=== PATIENT | male | born 1945 | race Caucasian/White ===

== ENCOUNTER 2018-02-08 10:23 | Day surgery (SDC) | payer OTHER ==
[~2018-02-08 10:23] MED LIST: BESIFLOXACIN HCL 0.6% OPH SUSP 5 ML BOTTLE OS PRN; CHONDR SU A NA/HYALUR INTRAOC KIT (SURGICARE) ONE; CYCLOPENTOLATE 0.2%/PHENYLEPHRINE 1% OPH SOLN 2 ML OS PRN; EPINEPHRINE INJ/PF 1 MG/1 ML AMPULE ONE; KETOROLAC TROMETHAMINE 0.45% 4 DROP/0.4 ML DROPERETTE OS PRN; LIDOCAINE 1% INJ-PF (10 MG/ML) 30 ML SDV ONE; TETRACAINE HCL 0.5% OPH SOLN 4 ML OS PRN; TROPICAMIDE 1% OPH SOLN 3 ML OS PRN
[2018-02-08] MEDS: TETRACAINE HCL 0.5% OPH SOLN 4 ML OS PRN ×3 (11:14→12:34)
[2018-02-08] MEDS: CYCLOPENTOLATE 0.2%/PHENYLEPHRINE 1% OPH SOLN 2 ML OS PRN ×3 (11:15→11:40)
[2018-02-08] MEDS: TROPICAMIDE 1% OPH SOLN 3 ML OS PRN ×3 (11:15→11:40)
[2018-02-08] MEDS: BESIFLOXACIN HCL 0.6% OPH SUSP 5 ML BOTTLE OS PRN ×3 (11:16→13:00)
[2018-02-08] MEDS ORDERED: MIDAZOLAM 2 MG/2 ML INJ ONE (11:42)
[2018-02-08] MEDS ORDERED: LIDOCAINE 1%/PHENYLEPHRINE 1.5% 1 ML VIAL ONE (13:06)
--- NOTE | 2018-02-08 22:01 | [facility] OPERATIVE REPORT E ---
[facility] Operative Report NAME: SONJA TANNER AGE: 72Y DATE OF SURGERY: 02/08/2018 ROOM: PREOPERATIVE DIAGNOSIS: CATARACT, LEFT EYE. POSTOPERATIVE DIAGNOSIS: CATARACT, LEFT EYE. OPERATION: Cataract extraction with insertion of an IOL of the left eye. SURGEON: DOUG SANCHEZ M.D. ANESTHESIA: Topical. PROCEDURE: After obtaining appropriate consent, the patient's left eye was prepped and draped in sterile fashion as well as the surgeon in a sterile manner and cataract surgery was started. First a paracentesis blade was used to make a side-port incision. Viscoelastic was used to inflate the anterior chamber. Next a 2.4 mm incision was made with a 2.4 mm blade, clear corneal temporally. A continuous capsulorrhexis was made using a cystotome and Utrata forceps. Following this hydrodissection was carried out to make the lens fully loose and mobile and it was rotated 90 degrees. Following this, a [id number] technique was used to phacoemulsify the lens with a CDE of 14.90. The remaining cortex was removed with irrigation/aspiration. Provisc was instilled into the capsular bag to inflate the bag. A SN60WF, 21.5 diopter lens was placed. The remaining viscoelastic material was removed with irrigation/aspiration. Following this, the incision was found to be watertight. Besivance was instilled into the eye and a protective shield was placed over the eye. The patient returned to the postoperative recovery in stable condition. DICTATING PHYSICIAN: DOUG SANCHEZ M.D. [id number] PHY#: [id number] 1950 ID: [id number] JOB#: [id number] ACCT: [id number] cc:DOUG SANCHEZ M.D. >
--- NOTE | 2018-02-08 22:01 | [facility] DISCHARGE SUMMARY E ---
[facility] Discharge Summary NAME: SONJA TANNER AGE: 72Y ADMITTED: 02/08/2018 DISCHARGED: 02/08/2018 HOSPITAL COURSE: This is a 72-year-old male who underwent cataract extraction of the left eye. DIAGNOSIS: CATARACT, LEFT EYE. He underwent surgery because he was having difficulty driving at night secondary to glare from headlights. DISCHARGE INSTRUCTIONS: He should be on a regular diet. No bending at his waist, no heavy lifting. He should use his Besivance, Ilevro, and Durezol at 3 p.m. and 8 p.m. and sleep with a rigid shield. I will see him for his 1 day postoperative tomorrow. DICTATING PHYSICIAN: DOUG SANCHEZ M.D. [id number] PHY#: [id number] ID: [id number] JOB#: [id number] ACCT: [id number] cc:DOUG SANCHEZ M.D. >
[2018-02-09] MEDS ORDERED: TETRACAINE HCL 0.5% OPH SOLN 4 ML OS PRN (05:00)
[2018-02-09] MEDS ORDERED: TROPICAMIDE 1% OPH SOLN 3 ML OS PRN (05:00)
[2018-02-09] MEDS ORDERED: BESIFLOXACIN HCL 0.6% OPH SUSP 5 ML BOTTLE OS PRN (05:00)
[2018-02-09] MEDS ORDERED: BUPIVACAINE HCL 0.75% INJ/PF (7.5 MG/1 ML) 10 ML SDV OS PRN (05:00)
[2018-02-09] MEDS ORDERED: KETOROLAC TROMETHAMINE 0.45% 4 DROP/0.4 ML DROPERETTE OS PRN (05:00)
[2018-02-09] MEDS ORDERED: CYCLOPENTOLATE 0.2%/PHENYLEPHRINE 1% OPH SOLN 2 ML OS PRN (05:00)
== END 2018-02-08 13:44 | disposition home or self-care (01) ==
LOC: SC 10:23
PROVIDERS: ATTEND Internal Medicine
DX: H25.13 Age-related nuclear cataract, bilateral (principal); H17.89 Other corneal scars and opacities; H57.03 Miosis; I10 Essential (primary) hypertension; E78.00 Pure hypercholesterolemia, unspecified; J44.9 Chronic obstructive pulmonary disease, unspecified; F17.210 Nicotine dependence, cigarettes, uncomplicated; Z79.899 Other long term (current) drug therapy; Z79.51 Long term (current) use of inhaled steroids
CPT/HCPCS: 66984; V2632; J2250; J3490 ×3; J0171; J2370; 142

== ENCOUNTER 2018-03-18 09:31 | Emergency (ER) | payer MEDICARE, OTHER ==
[2018-03-18] MEDS ORDERED: IPRATROPIUM/ALBUTEROL 0.5-2.5 MG/3 ML AMPUL NEB ONE (09:49)
[2018-03-18] MEDS ORDERED: METHYLPREDNISOLONE INJ 125 MG/2 ML SDV IV ONE (09:49)
[2018-03-18] MEDS ORDERED: BUDESONIDE NEB 0.5 MG/2 ML AMPUL NEB ONE (09:49)
--- NOTE | 2018-03-18 09:49 | ER Document Report ---
ED Medical Screen (RME) - General Chief Complaint: Cough Stated Complaint: COUGH/SHORT OF BREATH Time Seen by Provider: 03/18/18 09:43 Notes: Patient is a 72-year-old male with COPD and CAD that presents to the emergency department for chief complaint of cough and shortness of breath. Patient reports been having the symptoms for the last 48 hours, seemingly getting worse , with a productive sputum. ROS: Other than noted above, the 12 point review of systems was reviewed with the patient and were negative, all pertinent findings are included in the HPI. PHYSICAL EXAMINATION: Vital signs reviewed. GENERAL: Elderly male, in no acute respiratory distress HEAD: Atraumatic, normocephalic. EYES: Pupils equal round extraocular movements intact, conjunctiva are normal. ENT: Nares patent NECK: Normal range of motion CV: Heart regular rate and rhythm LUNGS: No respiratory distress, severely diminished lung sounds Musculoskeletal: Normal range of motion NEUROLOGICAL: Normal speech PSYCH: Normal mood, normal affect. MDM: Patient seen and examined for rapid initial assessment. Vital signs reviewed. A comprehensive ED assessment and evaluation of the patient, analysis of test results and completion of the medical decision making process will be conducted by additional ED providers. *Note is created using voice recognition software and may contain spelling, syntax or grammatical errors. TRAVEL OUTSIDE OF THE [place] IN LAST 30 DAYS: No - Related Data Allergies/Adverse Reactions: No Known Allergies Allergy (Unverified 01/08/18 10:06) Past Medical History - Past Medical History Cardiac Medical History: Reports: Hx Hypertension Denies: Hx Heart Attack Pulmonary Medical History: Denies: Hx Asthma Neurological Medical History: Denies: Hx Cerebrovascular Accident, Hx Seizures GI Medical History: Denies: Hx Hepatitis, Hx Hiatal Hernia, Hx Ulcer Infectious Medical History: Denies: Hx Hepatitis Past Surgical History: Denies: Hx Open Heart Surgery - stents, Hx Pacemaker Physical Exam - Vital signs Vitals: Temp Pulse Resp BP Pulse Ox 98.2 F 75 18 111/60 95 03/18/18 09:41 03/18/18 09:41 03/18/18 09:41 03/18/18 09:41 03/18/18 09:41 Course - Vital Signs Vital signs: Temp Pulse Resp BP Pulse Ox 98.2 F 75 18 111/60 95 03/18/18 09:41 03/18/18 09:41 03/18/18 09:41 03/18/18 09:41 03/18/18 09:41 Doctor's Discharge - Discharge Referrals: CAITLIN FARIAS MD [Primary Care Provider] - Follow up as needed
--- NOTE | 2018-03-18 10:13 | ER Document Report ---
ED General - General Chief Complaint: Cough Stated Complaint: COUGH/SHORT OF BREATH Time Seen by Provider: 03/18/18 09:43 Mode of Arrival: Ambulatory Information source: Patient Notes: This is a 72-year-old man with COPD who presents to the emergency room with cough, congestion, sinus drainage and shortness of breath and wheezing. TRAVEL OUTSIDE OF THE [place] IN LAST 30 DAYS: No - HPI Onset: Last week Onset/Duration: Gradual Quality of pain: No pain Severity: None Pain Level: Denies Associated symptoms: Chills, Nonproductive cough, Shortness of breath Exacerbated by: Movement Relieved by: Remaining still Similar symptoms previously: Yes Recently seen / treated by doctor: No - Related Data Allergies/Adverse Reactions: No Known Allergies Allergy (Unverified 01/08/18 10:06) Past Medical History - General Information source: Patient - Social History Smoking Status: Current Every Day Smoker Cigarette use (# per day): Yes - Half a pack per day Chew tobacco use (# tins/day): No Frequency of alcohol use: Occasional Drug Abuse: None Lives with: Spouse/Significant other Family History: None Patient has suicidal ideation: No Patient has homicidal ideation: No - Past Medical History Cardiac Medical History: Reports: Hx Hypertension Denies: Hx Heart Attack Pulmonary Medical History: Denies: Hx Asthma Neurological Medical History: Denies: Hx Cerebrovascular Accident, Hx Seizures Renal/ Medical History: Denies: Hx Peritoneal Dialysis GI Medical History: Denies: Hx Hepatitis, Hx Hiatal Hernia, Hx Ulcer Infectious Medical History: Denies: Hx Hepatitis Past Surgical History: Reports: Hx Coronary Stent. Denies: Hx Open Heart Surgery - stents, Hx Pacemaker Review of Systems - Review of Systems Constitutional: Chills, Fever EENT: No symptoms reported Cardiovascular: No symptoms reported Respiratory: See HPI Gastrointestinal: No symptoms reported Genitourinary: No symptoms reported Male Genitourinary: No symptoms reported Musculoskeletal: No symptoms reported Skin: No symptoms reported Hematologic/Lymphatic: No symptoms reported Neurological/Psychological: No symptoms reported Physical Exam - Vital signs Vitals: Temp Pulse Resp BP Pulse Ox 98.2 F 75 18 111/60 95 03/18/18 09:41 03/18/18 09:41 03/18/18 09:41 03/18/18 09:41 03/18/18 09:41 Notes: Physical exam: GENERAL: Patient is alert and oriented x3 HEAD: Atraumatic, normocephalic. EYES: Pupils equal round and reactive to light, extraocular movements intact, sclera anicteric, conjunctiva are normal. ENT: TMs normal, nares patent, oropharynx clear without exudates. Moist mucous membranes. NECK: Normal range of motion, supple without obvious mass or JVD. LUNGS: Wheezing and rhonchi bilaterally. HEART: Regular rate and rhythm without murmurs, rubs or gallops. ABDOMEN: Soft, normoactive bowel sounds. No tenderness to palpation. No guarding, no rebound. No masses appreciated. EXTREMITIES: Normal range of motion, no pitting or edema. No clubbing or cyanosis. NEUROLOGICAL: Cranial nerves II through XII grossly intact. Normal speech, moving all extremities. PSYCH: Normal mood, normal affect. SKIN: Warm, Dry, normal turgor, no rashes or lesions noted. Course - Vital Signs Vital signs: Temp Pulse Resp BP Pulse Ox 98 F 98 18 114/61 96 03/18/18 13:10 03/18/18 13:10 03/18/18 13:10 03/18/18 13:10 03/18/18 13:10 - Laboratory Result Diagrams: 03/18/18 10:08 03/18/18 10:08 Laboratory results interpreted by me: 03/18/18 03/18/18 10:08 10:08 RDW 14.2 H Plt Count 149 L Seg Neutrophils % 80.6 H Lymphocytes % 5.9 L Absolute Lymphocytes 0.3 L Sodium 132.4 L Chloride 96 L Glucose 118 H - Diagnostic Test Radiology reviewed: Image reviewed, Reports reviewed - Chest x-ray shows no infiltrates or effusions - EKG Interpretation by Me Rate: Normal Rhythm: NSR - EKG showed normal sinus rhythm with a ventricular rate of 91, occasional PVCs, no acute ST-T wave changes Discharge - Discharge Clinical Impression: COPD exacerbation, Influenza A Condition: Stable Disposition: HOME, SELF-CARE Additional Instructions: As we discussed, your chest x-ray showed no evidence of pneumonia. Your serologies however did show that you were positive for influenza A. You are being treated for both a COPD exacerbation in the setting of influenza A. I want you to start the Tamiflu today. Continue with the prednisone: Start today. Continue with your other medicines and inhalers. Return to the emergency room for worsening shortness of breath or any concerns or getting worse. Otherwise, call your doctor tomorrow for a follow-up appointment within the next few days. Prescriptions: Oseltamivir Phosphate [Tamiflu 75 mg Capsule] 75 mg PO BID #10 capsule Prednisone [Deltasone 20 mg Tablet] 3 tab PO DAILY 5 Days tablet Referrals: CAITLIN FARIAS MD [Primary Care Provider] - Follow up tomorrow (Call tomorrow for follow-up appointment within the next few days.)
[2018-03-18 10:20] LABS: ABSOLUTE LYMPHOCYTES (AUTO) 0.3 10^3/uL (0.5-4.7); ABSOLUTE MONOCYTES (AUTO) 0.7 10^3/uL (0.1-1.4); ABSOLUTE NEUT (AUTO) 4.6 10^3/uL (1.7-8.2); BASOPHILS % (AUTO) 0.6 % (0-2); EOSINOPHILS % (AUTO) 0.3 % (0-6); HEMATOCRIT 40.9 % (37.9-51.0); HEMOGLOBIN 14.6 g/dL (13.5-17.0); LYMPHOCYTES % (AUTO) 5.9 % (13-45); MEAN CORPUSCULAR HEMOGLOBIN 31.3 pg (27.0-33.4); MEAN CORPUSCULAR HGB CONC 35.6 g/dL (32.0-36.0); MEAN CORPUSCULAR VOLUME 88 fl (80-97); MONOCYTES % (AUTO) 12.6 % (3-13); PLATELET COUNT 149 10^3/uL (150-450); RED BLOOD COUNT 4.65 10^6/uL (4.35-5.55); RED CELL DISTRIBUTION WIDTH 14.2 % (11.5-14.0); SEGMENTED NEUTROPHILS % (AUTO) 80.6 % (42-78); TOTAL CELLS COUNTED % (AUTO) 100 %; WHITE BLOOD COUNT 5.7 10^3/uL (4.0-10.5)
[2018-03-18 10:39] LABS: ALANINE AMINOTRANSFERASE 46 U/L (21-72); ALBUMIN 4.2 g/dL (3.5-5.0); ALKALINE PHOSPHATASE 87 U/L (38-126); ANION GAP 14 (5-19); ASPARTATE AMINO TRANSFERASE 42 U/L (17-59); BILIRUBIN,DIRECT 0.2 mg/dL (0.0-0.4); BILIRUBIN,TOTAL 1.3 mg/dL (0.2-1.3); BLOOD UREA NITROGEN 14 mg/dL (7-20); CALCIUM 9.1 mg/dL (8.4-10.2); CARBON DIOXIDE 22 mmol/L (22-30); CHLORIDE 96 mmol/L (98-107); GLUCOSE 118 mg/dL (75-110); POTASSIUM 4.3 mmol/L (3.6-5.0); SODIUM 132.4 mmol/L (137-145); TOTAL PROTEIN 6.7 g/dL (6.3-8.2)
--- NOTE | 2018-03-18 11:01 | RADIOLOGY REPORT (SQ) ---
EXAM DESCRIPTION: CHEST SINGLE VIEW COMPLETED DATE/TIME: 03/18/2018 10:14 am REASON FOR STUDY: cough, short of breath COMPARISON: None. EXAM PARAMETERS: NUMBER OF VIEWS: One view. TECHNIQUE: Single frontal radiographic view of the chest acquired. RADIATION DOSE: NA LIMITATIONS: None. FINDINGS: LUNGS AND PLEURA: No opacities, masses or pneumothorax. No pleural effusion. MEDIASTINUM AND HILAR STRUCTURES: No masses. Contour normal. HEART AND VASCULAR STRUCTURES: Heart normal in size. Normal vasculature. BONES: No acute findings. HARDWARE: None in the chest. OTHER: No other significant finding. IMPRESSION: NO ACUTE RADIOGRAPHIC FINDING IN THE CHEST. TECHNICAL DOCUMENTATION: JOB ID: [id number] [employer]- All Rights Reserved Reading location - IP/workstation name: [email or web address]
[2018-03-18 11:30] LABS: A TYPE INFLUENZA AG POSITIVE (NEGATIVE); B INFLUENZA AG NEGATIVE (NEGATIVE)
[2018-03-18 13:11] VITALS: BP 114/61
--- NOTE | 2018-03-18 17:27 | EKG REPORT ---
SEVERITY:- ABNORMAL ECG - SINUS RHYTHM MULTIPLE VENTRICULAR PREMATURE COMPLEXES BORDERLINE LEFT AXIS DEVIATION : Confirmed by: Hugo Villaseñor MD 18-Mar-2018 17:21:33
== END 2018-03-18 13:10 | disposition home or self-care (01) ==
LOC: ER 09:31
DX: J44.1 Chronic obstructive pulmonary disease with (acute) exacerbation (principal); J11.1 Influenza due to unidentified influenza virus with other respiratory manifestations; F17.210 Nicotine dependence, cigarettes, uncomplicated; I10 Essential (primary) hypertension
CPT/HCPCS: 93005; 99285; 96374; 36415; 85025; 80053; 84484; 87804; 71045; 93010; J2930; J7620

== ENCOUNTER 2018-03-24 10:38 | Emergency (ER) | payer OTHER ==
--- NOTE | 2018-03-24 10:56 | ER Document Report ---
ED General - General Chief Complaint: Flu Symptoms Stated Complaint: SHORTNESS OF BREATH Time Seen by Provider: 03/24/18 10:54 Notes: Ancelmo Ratliff MD TRAVEL OUTSIDE OF THE [place] IN LAST 30 DAYS: No - Related Data Allergies/Adverse Reactions: No Known Allergies Allergy (Verified 03/24/18 10:39) Past Medical History - Social History Smoking Status: Current Every Day Smoker Frequency of alcohol use: Occasional Family History: None Patient has suicidal ideation: No Patient has homicidal ideation: No - Past Medical History Cardiac Medical History: Reports: Hx Hypertension Denies: Hx Heart Attack Pulmonary Medical History: Denies: Hx Asthma Neurological Medical History: Denies: Hx Cerebrovascular Accident, Hx Seizures Renal/ Medical History: Denies: Hx Peritoneal Dialysis GI Medical History: Denies: Hx Hepatitis, Hx Hiatal Hernia, Hx Ulcer Infectious Medical History: Denies: Hx Hepatitis Past Surgical History: Reports: Hx Coronary Stent. Denies: Hx Open Heart Surgery - stents, Hx Pacemaker Physical Exam - Vital signs Vitals: Temp Pulse Resp BP Pulse Ox 98.5 F 84 24 H 159/82 H 95 03/24/18 10:42 03/24/18 10:42 03/24/18 10:42 03/24/18 10:42 03/24/18 10:42 Course - Vital Signs Vital signs: Temp Pulse Resp BP Pulse Ox 98.1 F 70 14 138/86 H 95 03/24/18 16:12 03/24/18 16:12 03/24/18 16:12 03/24/18 16:12 03/24/18 16:12 - Laboratory Result Diagrams: 03/24/18 10:58 03/24/18 10:58 Laboratory results interpreted by me: 03/24/18 03/24/18 03/24/18 10:58 10:58 11:40 WBC 13.6 H Absolute Neutrophils 9.3 H VBG pH 7.45 H Sodium 136.6 L Discharge - Discharge Clinical Impression: Influenza A, Cough, Elevated blood pressure reading, History of COPD Condition: Good Disposition: HOME, SELF-CARE Instructions: Cough Suppressant & Expectorant Medications, Influenza ([facility]) 2008 -2009, Pneumonia ([facility]) Additional Instructions: You have influenza. There is no treatment that is effective for this diagnosis other than supportive care at home. This includes drinking plenty of fluids, using Tylenol or ibuprofen as needed for fever and discomfort, and Zofran as needed for nausea and vomiting. Please follow closely with you primary care physician the next 1-2 days regarding this diagnosis. Return to the emergency department immediately if you began to have persistent vomiting prevents you from being able to keep fluids down for more than 12 hours, you pass out, you began having difficulty breathing, you become confused, or you have any other symptoms that are worrisome to you. Prescriptions: Guaifenesin/Codeine Phos [Robitussin-AC Syrup 59 ml] 5 ml PO QHS #50 ml Benzonatate [Tessalon Perle 100 mg Capsule] 200 mg PO Q8HP PRN #20 cap PRN Reason: Doxycycline Hyclate 100 mg PO BID #14 capsule Forms: Elevated Blood Pressure, Smoking Cessation Education Referrals: CAITLIN FARIAS MD [Primary Care Provider] - Follow up as needed
[2018-03-24] MEDS ORDERED: RINGERS SOLUTION,LACTATED 1,000 ML IV ONE (11:22)
[2018-03-24] MEDS ORDERED: KETOROLAC TROMETHAMINE INJ/PF 30 MG/1 ML SDV IV ONE (11:22)
[2018-03-24] MEDS ORDERED: IPRATROPIUM/ALBUTEROL 0.5-2.5 MG/3 ML AMPUL NEB ONE (11:22)
[2018-03-24 11:25] LABS: ABSOLUTE BASOPHILS # (AUTO) 0.1 10^3/uL (0.0-0.2); ABSOLUTE EOSINOPHILS # (AUTO) 0.1 10^3/uL (0.0-0.6); ABSOLUTE MONOCYTES (AUTO) 1.2 10^3/uL (0.1-1.4); ABSOLUTE NEUT (AUTO) 9.3 10^3/uL (1.7-8.2); BASOPHILS % (AUTO) 0.5 % (0-2); EOSINOPHILS % (AUTO) 0.9 % (0-6); HEMATOCRIT 42.2 % (37.9-51.0); HEMOGLOBIN 14.8 g/dL (13.5-17.0); LYMPHOCYTES % (AUTO) 21.7 % (13-45); MEAN CORPUSCULAR HEMOGLOBIN 30.6 pg (27.0-33.4); MEAN CORPUSCULAR HGB CONC 35.2 g/dL (32.0-36.0); MEAN CORPUSCULAR VOLUME 87 fl (80-97); MONOCYTES % (AUTO) 8.6 % (3-13); PLATELET COUNT 218 10^3/uL (150-450); RED BLOOD COUNT 4.85 10^6/uL (4.35-5.55); SEGMENTED NEUTROPHILS % (AUTO) 68.3 % (42-78); TOTAL CELLS COUNTED % (AUTO) 100 %; WHITE BLOOD COUNT 13.6 10^3/uL (4.0-10.5)
--- NOTE | 2018-03-24 11:29 | ER Document Report ---
ED General - General Chief Complaint: Flu Symptoms Stated Complaint: SHORTNESS OF BREATH Time Seen by Provider: 03/24/18 10:54 Mode of Arrival: Ambulatory Information source: Patient, Friend, [facility] Records Notes: 72-year-old male with coronary artery disease, COPD, hypertension, recent diagnosis of influenza A 6 days ago presents with persistent cough, shortness of breath. Patient states symptoms started 2 weeks prior to arrival. He states that he developed chills and fever which have resolved but the cough has persisted and is now productive with yellow-green sputum. Patient does have a history of COPD and has been using his nebulizers. He denies any fever, abdominal pain, lower extremity swelling, nausea, vomiting, diarrhea. He does complain of chest and back pain with coughing only. He describes his chest pain as a burning pain that stops after coughing. He denies any current chest or back pain. Patient was prescribed Tamiflu and prednisone for which she completed. TRAVEL OUTSIDE OF THE [place] IN LAST 30 DAYS: No - HPI Onset: Other Onset/Duration: Gradual, Persistent, Worse - Coughing worse, Gone - Chest pain gone Quality of pain: Burning Severity: Mild Associated symptoms: Body/muscle aches, Chest pain - With coughing only, Productive cough, Shortness of breath, Weakness. denies: Earache, Fever, Headache, Leg swelling, Nausea, Vomiting Exacerbated by: Coughing Relieved by: Denies Similar symptoms previously: Yes Recently seen / treated by doctor: Yes - March 18, 2018 - Related Data Allergies/Adverse Reactions: No Known Allergies Allergy (Verified 03/24/18 10:39) Past Medical History - General Information source: Patient, Relative, [facility] Records - Social History Smoking Status: Current Every Day Smoker Cigarette use (# per day): Yes - 5 Smoking Education Provided: Yes - Smoking cessation counseling was provided for 4 minutes at the bedside Frequency of alcohol use: Occasional Drug Abuse: None Lives with: Spouse/Significant other Family History: None Patient has suicidal ideation: No Patient has homicidal ideation: No - Past Medical History Cardiac Medical History: Reports: Hx Hypertension Denies: Hx Heart Attack Pulmonary Medical History: Denies: Hx Asthma Neurological Medical History: Denies: Hx Cerebrovascular Accident, Hx Seizures Renal/ Medical History: Denies: Hx Peritoneal Dialysis GI Medical History: Denies: Hx Hepatitis, Hx Hiatal Hernia, Hx Ulcer Infectious Medical History: Denies: Hx Hepatitis Past Surgical History: Reports: Hx Coronary Stent. Denies: Hx Open Heart Surgery - stents, Hx Pacemaker Review of Systems - Review of Systems Constitutional: Malaise, Recent illness. denies: Chills, Diaphoresis, Fever EENT: denies: Blurred vision, Throat pain Cardiovascular: Chest pain - With coughing only. denies: Lightheaded Respiratory: Cough, Short of breath, Wheezing Gastrointestinal: denies: Abdominal pain, Nausea, Vomiting Genitourinary: denies: Dysuria, Flank pain Musculoskeletal: No symptoms reported, Back pain - With coughing Skin: denies: Rash Hematologic/Lymphatic: No symptoms reported Neurological/Psychological: denies: Confusion, Seizure, Lost consciousness, Headaches, Speech impairment, Suicidal ideation, Tremor -: Yes All other systems reviewed and negative Physical Exam - Vital signs Vitals: Temp Pulse Resp BP Pulse Ox 98.5 F 84 24 H 159/82 H 95 03/24/18 10:42 03/24/18 10:42 03/24/18 10:42 03/24/18 10:42 03/24/18 10:42 - Notes Notes: PHYSICAL EXAMINATION: GENERAL: Well-appearing, well-nourished and in no acute distress. HEAD: Atraumatic, normocephalic. EYES: Pupils equal round and reactive to light, extraocular movements intact, sclera anicteric, conjunctiva are normal. ENT: Nares patent, oropharynx clear without exudates. Moist mucous membranes. NECK: Normal range of motion, supple without lymphadenopathy LUNGS: Coarse breath sounds in the left upper lung field. No wheezes rales or rhonchi. HEART: Regular rate and rhythm without murmurs ABDOMEN: Soft, nontender, nondistended abdomen. No guarding, no rebound. No masses appreciated. Musculoskeletal: Normal range of motion, no pitting or edema. No cyanosis. NEUROLOGICAL: Cranial nerves grossly intact. Normal speech, normal gait. Normal sensory, motor exams PSYCH: Normal mood, normal affect. SKIN: Warm, Dry, normal turgor, no rashes or lesions noted. Course - Re-evaluation Re-evalutation: 03/24/18 14:00 Laboratory 03/24/18 03/24/18 03/24/18 10:58 10:58 11:40 WBC 13.6 H RBC 4.85 Hgb 14.8 Hct 42.2 MCV 87 MCH 30.6 MCHC 35.2 RDW 14.0 Plt Count 218 Seg Neutrophils % 68.3 Lymphocytes % 21.7 Monocytes % 8.6 Eosinophils % 0.9 Basophils % 0.5 Absolute Neutrophils 9.3 H Absolute Lymphocytes 3.0 Absolute Monocytes 1.2 Absolute Eosinophils 0.1 Absolute Basophils 0.1 VBG pH 7.45 H VBG pCO2 38.0 VBG HCO3 26.0 VBG Base Excess 2.2 Sodium 136.6 L Potassium 4.0 Chloride 101 Carbon Dioxide 23 Anion Gap 13 BUN 15 Creatinine 0.87 Est GFR ( Amer) > 60 Est GFR (Non-Af Amer) > 60 Glucose 108 Calcium 9.3 Total Bilirubin 1.2 Direct Bilirubin 0.1 Neonat Total Bilirubin Not Reportable Neonat Direct Bilirubin Not Reportable Neonat Indirect Bili Not Reportable AST 34 ALT 69 Alkaline Phosphatase 93 Total Protein 6.5 Albumin 3.8 Chest X-Ray 03/24/18 10:54 IMPRESSION: NO ACUTE RADIOGRAPHIC FINDING IN THE CHEST. 03/24/18 14:34 Patient ambulated on pulse ox and maintained an oxygen saturation above 94%. 03/24/18 21:06 03/24/18 21:07 72-year-old male with coronary artery disease, COPD, hypertension, recent diagnosis of influenza A 6 days ago presents with persistent cough, shortness of breath. Patient states symptoms started 2 weeks prior to arrival. He states that he developed chills and fever which have resolved but the cough has persisted and is now productive with yellow-green sputum. Patient does have a history of COPD and has been using his nebulizers. He denies any fever, abdominal pain, lower extremity swelling, nausea, vomiting, diarrhea. He does complain of chest and back pain with coughing only. He describes his chest pain as a burning pain that stops after coughing. He denies any current chest or back pain. Patient was prescribed Tamiflu and prednisone for which she completed. Upon arrival vitals were reviewed. Patient is afebrile, mildly hypertensive, not hypoxic or tachycardic. Patient appears ill but not toxic or dehydrated. CMP is without significant electrolyte abnormalities. CBC does show a leukocytosis of 13 which is increased from his previous labs last week. Chest x-ray again shows no evidence of pneumonia. VBG within normal limits. Patient significant other is at the bedside and states that she is a physician' s assistant wrestling coach. She requests multiple medications that are not necessary for the patient at this time. I explained to the patient that at his age influenza would have a significant effect on his energy level, ability to perform normal activities and that it may take a few weeks for him to begin to feel better. Significant other questions of why I did not repeat a flu test again explained to her that that was not necessary. Patient is tolerating food and fluids. He did receive ceftriaxone during his ED course. Patient was discharged home with doxycycline and Tessalon Perles. 03/24/18 21:07 Patient presents with persistent cough, Influenza testing is positive. Patient is overall well in appearance, in no acute distress. Lung sounds clear. Able to tolerate oral intake without difficulty here in the emergency department. Patient has already completed a course of Tamiflu, prednisone. Verbal discharge instructions given a the bedside and opportunity for questions given. Medication warnings reviewed. Patient is in agreement with this plan and has verbalized understanding of return precautions and the need for primary care follow-up in the next 24-72 hours 03/24/18 21:15 - Vital Signs Vital signs: Temp Pulse Resp BP Pulse Ox 98.1 F 70 14 138/86 H 95 03/24/18 16:12 03/24/18 16:12 03/24/18 16:12 03/24/18 16:12 03/24/18 16:12 - Laboratory Result Diagrams: 03/24/18 10:58 03/24/18 10:58 Laboratory results interpreted by me: 03/24/18 03/24/18 03/24/18 10:58 10:58 11:40 WBC 13.6 H Absolute Neutrophils 9.3 H VBG pH 7.45 H Sodium 136.6 L - Diagnostic Test Radiology reviewed: Image reviewed, Reports reviewed - EKG Interpretation by Ia EKG shows normal: Sinus rhythm Rate: Normal Rhythm: NSR [place]/QRS: Left axis deviation Voltage: Decreased voltage Discharge - Discharge Clinical Impression: Influenza A, Cough, Elevated blood pressure reading, History of COPD Condition: Good Disposition: HOME, SELF-CARE Instructions: Cough Suppressant & Expectorant Medications, Influenza ([facility]) 2008 -2009, Pneumonia ([facility]) Additional Instructions: You have influenza. There is no treatment that is effective for this diagnosis other than supportive care at home. This includes drinking plenty of fluids, using Tylenol or ibuprofen as needed for fever and discomfort, and Zofran as needed for nausea and vomiting. Please follow closely with you primary care physician the next 1-2 days regarding this diagnosis. Return to the emergency department immediately if you began to have persistent vomiting prevents you from being able to keep fluids down for more than 12 hours, you pass out, you began having difficulty breathing, you become confused, or you have any other symptoms that are worrisome to you. Prescriptions: Guaifenesin/Codeine Phos [Robitussin-AC Syrup 59 ml] 5 ml PO QHS #50 ml Benzonatate [Tessalon Perle 100 mg Capsule] 200 mg PO Q8HP PRN #20 cap PRN Reason: Doxycycline Hyclate 100 mg PO BID #14 capsule Forms: Elevated Blood Pressure, Smoking Cessation Education Referrals: CAITLIN FARIAS MD [Primary Care Provider] - Follow up as needed
[2018-03-24 11:43] LABS: ALANINE AMINOTRANSFERASE 69 U/L (21-72); ALBUMIN 3.8 g/dL (3.5-5.0); ALKALINE PHOSPHATASE 93 U/L (38-126); ANION GAP 13 (5-19); ASPARTATE AMINO TRANSFERASE 34 U/L (17-59); BILIRUBIN,DIRECT 0.1 mg/dL (0.0-0.4); BILIRUBIN,TOTAL 1.2 mg/dL (0.2-1.3); BLOOD UREA NITROGEN 15 mg/dL (7-20); CALCIUM 9.3 mg/dL (8.4-10.2); CARBON DIOXIDE 23 mmol/L (22-30); CHLORIDE 101 mmol/L (98-107); GLUCOSE 108 mg/dL (75-110); SODIUM 136.6 mmol/L (137-145); TOTAL PROTEIN 6.5 g/dL (6.3-8.2)
--- NOTE | 2018-03-24 12:09 | RADIOLOGY REPORT (SQ) ---
EXAM DESCRIPTION: CHEST 2 VIEWS COMPLETED DATE/TIME: 03/24/2018 11:55 am REASON FOR STUDY: Productive cough, low-grade fever, COPD COMPARISON: 03/18/2018 EXAM PARAMETERS: NUMBER OF VIEWS: two views TECHNIQUE: Digital Frontal and Lateral radiographic views of the chest acquired. RADIATION DOSE: NA LIMITATIONS: none FINDINGS: LUNGS AND PLEURA: No opacities, masses or pneumothorax. No pleural effusion. Chronic calc ified granulomata. MEDIASTINUM AND HILAR STRUCTURES: No masses or contour abnormalities. HEART AND VASCULAR STRUCTURES: Heart normal size. No evidence for failure. BONES: No acute findings. HARDWARE: None in the chest. OTHER: No other significant finding. IMPRESSION: NO ACUTE RADIOGRAPHIC FINDING IN THE CHEST. TECHNICAL DOCUMENTATION: JOB ID: [id number] [employer]- All Rights Reserved Reading location - IP/workstation name: [email or web address]
[2018-03-24 12:26] LABS: VENOUS BLOOD BASE EXCESS 2.2 mmol/L; VENOUS BLOOD PH 7.45 (7.30-7.42)
[2018-03-24] MEDS ORDERED: CEFTRIAXONE 1 GM/D5W RTU 1 GM/50 ML RTUPB IV ONE (13:59)
[2018-03-24] MEDS ORDERED: FENTANYL CITRATE INJ/PF 100 MCG/2 ML AMPUL IV ONE (13:59)
[2018-03-24 16:12] VITALS: BP 138/86
--- NOTE | 2018-03-24 20:01 | ER Document Report ---
ED Medical Screen (RME) - General Chief Complaint: Flu Symptoms Stated Complaint: SHORTNESS OF BREATH Time Seen by Provider: 03/24/18 10:54 Mode of Arrival: Ambulatory Notes: Patient is here for persistent cough and chest congestion. Was seen here 6 days ago and diagnosed with the flu, type a. He was put on prednisone and Tamiflu. He is finished those treatments. He has been unable to get into the [facility]. He has been using home nebs. Says he still coughing up yellow green phlegm now. Increasing shortness of breath. Low-grade fevers. History of a lung nodule. TRAVEL OUTSIDE OF THE [place] IN LAST 30 DAYS: No - Related Data Allergies/Adverse Reactions: No Known Allergies Allergy (Verified 03/24/18 10:39) Past Medical History - Social History Cigarette use (# per day): Yes - 5 Frequency of alcohol use: Occasional Drug Abuse: None - Past Medical History Cardiac Medical History: Reports: Hx Hypertension Denies: Hx Heart Attack Pulmonary Medical History: Denies: Hx Asthma Neurological Medical History: Denies: Hx Cerebrovascular Accident, Hx Seizures Renal/ Medical History: Denies: Hx Peritoneal Dialysis GI Medical History: Denies: Hx Hepatitis, Hx Hiatal Hernia, Hx Ulcer Infectious Medical History: Denies: Hx Hepatitis Past Surgical History: Reports: Hx Coronary Stent. Denies: Hx Open Heart Surgery - stents, Hx Pacemaker Physical Exam - Vital signs Vitals: Temp Pulse Resp BP Pulse Ox 98.5 F 84 24 H 159/82 H 95 03/24/18 10:42 03/24/18 10:42 03/24/18 10:42 03/24/18 10:42 03/24/18 10:42 Course - Vital Signs Vital signs: Temp Pulse Resp BP Pulse Ox 98.1 F 70 14 138/86 H 95 03/24/18 16:12 03/24/18 16:12 03/24/18 16:12 03/24/18 16:12 03/24/18 16:12 - Laboratory Result Diagrams: 03/24/18 10:58 03/24/18 10:58 Laboratory results interpreted by me: 03/24/18 03/24/18 03/24/18 10:58 10:58 11:40 WBC 13.6 H Absolute Neutrophils 9.3 H VBG pH 7.45 H Sodium 136.6 L Doctor's Discharge - Discharge Clinical Impression: Influenza A, Cough, Elevated blood pressure reading, History of COPD Condition: Good Disposition: HOME, SELF-CARE Instructions: Cough Suppressant & Expectorant Medications, Influenza ([facility]) 2008 -2009, Pneumonia ([facility]) Additional Instructions: You have influenza. There is no treatment that is effective for this diagnosis other than supportive care at home. This includes drinking plenty of fluids, using Tylenol or ibuprofen as needed for fever and discomfort, and Zofran as needed for nausea and vomiting. Please follow closely with you primary care physician the next 1-2 days regarding this diagnosis. Return to the emergency department immediately if you began to have persistent vomiting prevents you from being able to keep fluids down for more than 12 hours, you pass out, you began having difficulty breathing, you become confused, or you have any other symptoms that are worrisome to you. Prescriptions: Guaifenesin/Codeine Phos [Robitussin-AC Syrup 59 ml] 5 ml PO QHS #50 ml Benzonatate [Tessalon Perle 100 mg Capsule] 200 mg PO Q8HP PRN #20 cap PRN Reason: Doxycycline Hyclate 100 mg PO BID #14 capsule Forms: Elevated Blood Pressure, Smoking Cessation Education Referrals: CAITLIN FARIAS MD [Primary Care Provider] - Follow up as needed
--- NOTE | 2018-03-25 10:53 | EKG REPORT ---
SEVERITY:- OTHERWISE NORMAL ECG - SINUS RHYTHM BORDERLINE LEFT AXIS DEVIATION LOW VOLTAGE IN FRONTAL LEADS : Confirmed by: Rodri Sierra 25-Mar-2018 10:52:36
== END 2018-03-24 16:12 | disposition home or self-care (01) ==
LOC: ER 10:38
DX: J10.1 Influenza due to other identified influenza virus with other respiratory manifestations (principal); J44.9 Chronic obstructive pulmonary disease, unspecified; R09.89 Other specified symptoms and signs involving the circulatory and respiratory systems; R50.9 Fever, unspecified; I10 Essential (primary) hypertension; Z72.0 Tobacco use
CPT/HCPCS: 93005; 94640; 99284; 96361; 96375; 96365; 36415; 87070; 87205; 85025; 87077; 80053; 82803; 71046; 93010; J3010; J1885; J7120; J0696; J7620

== ENCOUNTER 2018-06-21 08:35 | Day surgery (SDC) | payer OTHER ==
[~2018-06-21 08:35] MED LIST changes: -BESIFLOXACIN HCL 0.6% OPH SUSP 5 ML BOTTLE OS PRN; -CYCLOPENTOLATE 0.2%/PHENYLEPHRINE 1% OPH SOLN 2 ML OS PRN; +KETOROLAC TROMETHAMINE 0.45% 4 DROP/0.4 ML DROPERETTE OD PRN; -KETOROLAC TROMETHAMINE 0.45% 4 DROP/0.4 ML DROPERETTE OS PRN; -LIDOCAINE 1% INJ-PF (10 MG/ML) 30 ML SDV ONE; +LIDOCAINE 1%/PHENYLEPHRINE 1.5% 1 ML VIAL ONE; -TETRACAINE HCL 0.5% OPH SOLN 4 ML OS PRN; -TROPICAMIDE 1% OPH SOLN 3 ML OS PRN
[2018-06-21] MEDS: TETRACAINE HCL 0.5% OPH SOLN 4 ML OD PRN ×2 (09:41→10:00)
[2018-06-21] MEDS: TROPICAMIDE 1% OPH SOLN 3 ML OD PRN ×3 (09:42→10:00)
[2018-06-21] MEDS: CYCLOPENTOLATE 0.2%/PHENYLEPHRINE 1% OPH SOLN 2 ML OD PRN ×3 (09:42→10:00)
[2018-06-21] MEDS: BESIFLOXACIN HCL 0.6% OPH SUSP 5 ML BOTTLE OD PRN ×4 (09:42→10:32)
[2018-06-21] MEDS ORDERED: FENTANYL CITRATE INJ/PF 100 MCG/2 ML AMPUL ONE (10:07)
[2018-06-21] MEDS ORDERED: MIDAZOLAM 2 MG/2 ML INJ ONE (10:07)
[2018-06-21] MEDS: DORZOLAMIDE HCL 2%/TIMOLOL MALEAT 0.5% OPH SOLN 10 ML OD PRN ×2 (10:32)
--- NOTE | 2018-06-21 20:13 | [facility] DISCHARGE SUMMARY E ---
[facility] Discharge Summary NAME: SONJA TANNER AGE: 73Y ADMITTED: 06/21/2018 DISCHARGED: This is a 73-year-old male who underwent cataract extraction of the right eye. DIAGNOSIS: Cataract right eye. He underwent surgery because he was having difficulty reading road signs. He should be on a regular diet. No bending at the waist and no heavy lifting. He should use his Pred Forte, Vigamox, and ketorolac at 3:00 p.m. and 8:00 p.m. and sleep with a rigid shield. I will see him for his 1-day postop tomorrow. DICTATING PHYSICIAN: DOUG SANCHEZ M.D. [id number] [id number] PHY#: [id number] ID: [id number] JOB#: [id number] ACCT: [id number] cc:DOUG SANCHEZ M.D. >
--- NOTE | 2018-06-21 20:13 | [facility] OPERATIVE REPORT E ---
[facility] Operative Report NAME: SONJA TANNER AGE: 73Y DATE OF SURGERY: 06/21/2018 ROOM: PREOPERATIVE DIAGNOSIS: CATARACT, RIGHT EYE. POSTOPERATIVE DIAGNOSIS: CATARACT, RIGHT EYE. OPERATION: Cataract extraction with insertion of an IOL of the right eye. SURGEON: DOUG SNACHEZ M.D. ANESTHESIA: Topical. PROCEDURE: After obtaining appropriate consent, the patient's right eye was prepped and draped in sterile fashion as well as the surgeon in a sterile manner and cataract surgery was started. First a paracentesis blade was used to make a side-port incision. Viscoelastic was used to inflate the anterior chamber. Next a 2.4 mm incision was made with a 2.4 mm blade, clear corneal temporally. A continuous capsulorrhexis was made using a cystotome and Utrata forceps. Following this hydrodissection was carried out to make the lens fully loose and mobile and it was rotated 90 degrees. Following this, a amjfka-ytw-jnloaeq technique was used to phacoemulsify the lens with a CDE of 18.56. The remaining cortex was removed with irrigation/aspiration. Provisc was instilled into the capsular bag to inflate the bag. A SN60WF, 22.5 diopter lens was placed. The remaining viscoelastic material was removed with irrigation/aspiration. Following this, the incision was found to be watertight. Besivance was instilled into the eye and a protective shield was placed over the eye. The patient returned to the postoperative recovery in stable condition. DICTATING PHYSICIAN: DOUG SANCHEZ M.D. [id number] [id number] PHY#: [id number] ID: [id number] JOB#: [id number] ACCT: [id number] cc:DOUG SANCHEZ M.D. >
== END 2018-06-21 11:43 | disposition home or self-care (01) ==
LOC: SC 08:35
PROVIDERS: ATTEND Internal Medicine
DX: H25.11 Age-related nuclear cataract, right eye (principal); H57.03 Miosis; I11.9 Hypertensive heart disease without heart failure; E78.00 Pure hypercholesterolemia, unspecified; J44.9 Chronic obstructive pulmonary disease, unspecified; F17.210 Nicotine dependence, cigarettes, uncomplicated; Z79.51 Long term (current) use of inhaled steroids
CPT/HCPCS: 66984; V2632; J2250; J3490 ×2; J0171; J3010; J2370; 142